=== PATIENT | female | born 1950 | race African-American/Black ===

== ENCOUNTER 2018-02-03 05:26 | Inpatient (IN) ==
[2018-01-28 14:40] LABS: Basophils % 0.5 % (0.0-0.8); Eosinophils # 0.1 10*3/uL (0.0-0.87); Eosinophils % 1.5 % (0.00-10.9); Hematocrit 42.7 VOL% (35.7-47.0); Hemoglobin 13.7 GM/DL (12.0-16.0); Immature Granulocytes % 0.5 %; Immature Granulocytes Absolute 0.03 #; Lymphocytes # 2.5 10*3/uL (1.4-4.0); Lymphocytes % 38.4 % (21.3-54.2); Mean Corpuscular HGB Conc 32.1 GM/DL (32-36); Mean Corpuscular Hemoglobin 26 PG (27-34); Mean Corpuscular Volume 80.3 FL (87-102); Mean Platelet Volume 10.5 FL (9.6-12.0); Monocytes # 0.7 10*3/uL (0.11-0.8); Monocytes % 11.3 % (1.7-12.7); Neutrophils # 3.1 10*3/uL (1.4-7.4); Neutrophils % 47.8 % (38.7-73.9); Platelet Count 255 T/CUMM (130-400); Red Blood Count 5.32 MC/CUMM (3.8-5.5); Red Cell Distribution Width 16.1 % (9.3-17.3); White Blood Count 6.5 T/CUMM (4-12)
[2018-01-28 14:50] LABS: Apearance,Urine CLOUDY (Clear); Bilirubin,Urine Negative (Negative); Blood, Urine Negative (Negative); Glucose,Urine (UA) Negative (Negative); Ketones,Urine 5 mg/dL (Negative); Mucus,Urine Many /LPF (Occasional); Nitrite,Urine Negative (Negative); Protein,Urine Negative; RBC,Urine 1 /HPF (0-4); Renal Epithelial Cells,Urine Occasional /HPF (<1); Squamous Epithelial Cell,Urine Moderate /HPF (0-10); Urine Color Yellow (Yellow); Urine Specific Gravity 1.031 (1.001-1.035); WBC,Urine 1 /HPF (0-6)
[2018-01-28 15:00] LABS: INR 1.1; PT Patient Result 11.8 SECS; Partial Thromboplastin Time 26.6 SECS (0-40)
[2018-01-28 15:05] LABS: Albumin 3.7 G/DL (3.4-5.0); Bilirubin,Total 0.4 MG/DL (0.2-1.0); Calcium 8.8 MG/DL (8.5-10.1); Osmolality,Calculated 279.3 MOS/KG (273-304); Potassium 3.9 MMOL/L (3.5-5.1); Total Protein 6.8 G/DL (6.4-8.3)
[2018-02-03] MEDS ORDERED: VANCOMYCIN INJ 1,000 MG in SODIUM CHLORIDE 0.9% 250 ML IV ONE (06:30)
[2018-02-03] MEDS ORDERED: ceFAZolin 1,000 MG VIAL ONE (06:31)
[2018-02-03] MEDS ORDERED: FAMOTIDINE 20 MG TABLET PO ONE (07:30)
[2018-02-03] MEDS ORDERED: LACTATED RINGERS 1,000 ML IV SCH (07:30)
[2018-02-03] MEDS ORDERED: DIAZEPAM 5 MG TABLET PO ONE (07:40)
[2018-02-03] MEDS ORDERED: VANCOMYCIN 1,000 MG VIAL ONE (08:11)
[2018-02-03] MEDS ORDERED: DIAZEPAM 5 MG TABLET ONE (08:11)
[2018-02-03] MEDS ORDERED: FAMOTIDINE 20 MG TABLET ONE (08:11)
[2018-02-03] MEDS ORDERED: BACITRACIN OINT 0.9 GM PACK TOP ONE (09:03)
[2018-02-03] MEDS ORDERED: TRANEXAMIC ACID 1,000 MG/10 ML VIAL IV ONE (09:03)
[2018-02-03] MEDS ORDERED: MORPHINE 4 MG/1 ML VIAL IV PRN ×2 (10:39)
[2018-02-03] MEDS ORDERED: ZALEPLON 5 MG CAPSULE PO PRN (10:39)
[2018-02-03] MEDS ORDERED: oxyCODONE IR 5 MG TABLET PO PRN ×2 (10:39)
[2018-02-03] MEDS ORDERED: diphenhydrAMINE CAP 25 MG CAPSULE PO PRN (10:39)
[2018-02-03] MEDS ORDERED: ROPIVACAINE 0.5% 30 ML VIAL ONE (12:02)
[2018-02-03] MEDS: HYDROmorphone 2 MG/1 ML VIAL IV PRN ×4 (12:05→12:24)
[2018-02-03] MEDS ORDERED: HYDROmorphone 2 MG/1 ML VIAL ONE (12:05)
[2018-02-03] MEDS ORDERED: ONDANSETRON 4 MG/2 ML VIAL ONE ×2 (12:05→13:00)
[2018-02-03] MEDS ORDERED: ONDANSETRON 4 MG/2 ML VIAL IV PRN (12:31)
[2018-02-03] MEDS ORDERED: PROPOFOL 200 MG/20 ML VIAL IV ONE (12:59)
[2018-02-03] MEDS ORDERED: MIDAZOLAM 2 MG/2 ML VIAL ONE (13:00)
[2018-02-03] MEDS ORDERED: KETOROLAC 30 MG/1 ML VIAL ONE (13:00)
[2018-02-03] MEDS ORDERED: GLYCOPYRROLATE 0.4 MG/2 ML VIAL ONE (13:00)
[2018-02-03] MEDS ORDERED: SEVOFLURANE 1 UNIT/15 MINUTE INH ONE (13:00)
[2018-02-03] MEDS ORDERED: PHENYLEPHRINE 10 MG/1 ML VIAL IV ONE (13:00)
[2018-02-03] MEDS ORDERED: ePHEDrine 50 MG/ML AMP ONE (13:00)
[2018-02-03] MEDS ORDERED: SODIUM CHLORIDE 0.9% 100 ML IV ONE (13:01)
[2018-02-03] MEDS ORDERED: ROCURONIUM 100 MG/10 ML VIAL IV ONE (13:01)
[2018-02-03] MEDS ORDERED: ACETAMINOPHEN 1,000 MG/100 ML VIAL IV ONE (13:01)
[2018-02-03] MEDS ORDERED: NEOSTIGMINE 10 MG/10 ML VIAL ONE (13:01)
[2018-02-03] MEDS: ceFAZolin 2,000 MG in PREMIX 1 EACH IV SCH ×2 (15:40→22:00)
[2018-02-03] MEDS: ACETAMINOPHEN 500 MG TABLET PO SCH ×2 (15:40→20:46)
[2018-02-03] MEDS: KETOROLAC 30 MG/1 ML VIAL IV SCH ×2 (15:42→20:48)
[2018-02-03] MEDS: DOXAZOSIN 4 MG TABLET PO SCH (15:44)
[2018-02-03] MEDS: ONDANSETRON 4 MG/2 ML VIAL IV PRN (16:27)
[2018-02-03] MEDS: LACTATED RINGERS 1,000 ML IV SCH ×2 (19:25)
[2018-02-03] MEDS: DOCUSATE SODIUM 100 MG CAPSULE PO SCH (20:47)
[2018-02-03] MEDS: ATENOLOL 50 MG TABLET PO SCH (20:48)
[2018-02-04] MEDS: KETOROLAC 30 MG/1 ML VIAL IV SCH ×2 (02:06→09:17)
[2018-02-04] MEDS: ACETAMINOPHEN 500 MG TABLET PO SCH ×2 (02:06→09:17)
[2018-02-04] MEDS: LACTATED RINGERS 1,000 ML IV SCH (04:01)
[2018-02-04] MEDS: FONDAPARINUX 2.5 MG/0.5 ML SYRINGE SUBCUT SCH (04:08)
[2018-02-04 05:11] LABS: Basophils % 0.4 % (0.0-0.8); Eosinophils # 0.1 10*3/uL (0.0-0.87); Eosinophils % 0.6 % (0.00-10.9); Hemoglobin 12.4 GM/DL (12.0-16.0); Immature Granulocytes % 0.4 %; Immature Granulocytes Absolute 0.03 #; Lymphocytes # 1.8 10*3/uL (1.4-4.0); Mean Corpuscular HGB Conc 32.6 GM/DL (32-36); Mean Corpuscular Hemoglobin 26 PG (27-34); Mean Corpuscular Volume 79.3 FL (87-102); Mean Platelet Volume 10.7 FL (9.6-12.0); Monocytes # 0.8 10*3/uL (0.11-0.8); Monocytes % 9.5 % (1.7-12.7); Neutrophils # 5.6 10*3/uL (1.4-7.4); Neutrophils % 67.1 % (38.7-73.9); Platelet Count 233 T/CUMM (130-400); Red Blood Count 4.79 MC/CUMM (3.8-5.5); Red Cell Distribution Width 15.6 % (9.3-17.3); White Blood Count 8.4 T/CUMM (4-12)
[2018-02-04 05:21] LABS: Calcium 8.5 MG/DL (8.5-10.1); Osmolality,Calculated 279.3 MOS/KG (273-304)
[2018-02-04] MEDS ORDERED: KETOROLAC 30 MG/1 ML VIAL ONE (09:08)
[2018-02-04] MEDS: DOXAZOSIN 4 MG TABLET PO SCH (09:16)
[2018-02-04] MEDS: VALSARTAN 160 MG TABLET PO SCH (09:16)
[2018-02-04] MEDS: DOCUSATE SODIUM 100 MG CAPSULE PO SCH ×2 (09:17→20:50)
[2018-02-04] MEDS: hydroCHLOROthiazide 12.5 MG CAPSULE PO SCH (09:17)
[2018-02-04] MEDS: ATENOLOL 50 MG TABLET PO SCH (09:17)
[2018-02-04] MEDS: CELECOXIB 200 MG CAPSULE PO SCH (16:34)
[2018-02-05 05:03] LABS: Basophils % 0.4 % (0.0-0.8); Eosinophils # 0.2 10*3/uL (0.0-0.87); Eosinophils % 2.8 % (0.00-10.9); Hematocrit 38.2 VOL% (35.7-47.0); Hemoglobin 12.4 GM/DL (12.0-16.0); Immature Granulocytes % 0.5 %; Immature Granulocytes Absolute 0.04 #; Lymphocytes # 1.9 10*3/uL (1.4-4.0); Lymphocytes % 25.9 % (21.3-54.2); Mean Corpuscular HGB Conc 32.5 GM/DL (32-36); Mean Corpuscular Hemoglobin 26 PG (27-34); Mean Corpuscular Volume 80.1 FL (87-102); Mean Platelet Volume 10.9 FL (9.6-12.0); Monocytes % 12.8 % (1.7-12.7); Neutrophils # 4.3 10*3/uL (1.4-7.4); Neutrophils % 57.6 % (38.7-73.9); Platelet Count 219 T/CUMM (130-400); Red Blood Count 4.77 MC/CUMM (3.8-5.5); Red Cell Distribution Width 15.8 % (9.3-17.3); White Blood Count 7.5 T/CUMM (4-12)
[2018-02-05] MEDS: FONDAPARINUX 2.5 MG/0.5 ML SYRINGE SUBCUT SCH (05:06)
[2018-02-05] MEDS: ONDANSETRON 4 MG/2 ML VIAL IV PRN ×3 (06:43→14:10)
[2018-02-05] MEDS: VALSARTAN 160 MG TABLET PO SCH (08:26)
[2018-02-05] MEDS: DOCUSATE SODIUM 100 MG CAPSULE PO SCH ×2 (08:26→20:23)
[2018-02-05] MEDS: CELECOXIB 200 MG CAPSULE PO SCH (08:26)
[2018-02-05] MEDS: ATENOLOL 50 MG TABLET PO SCH (08:26)
[2018-02-05] MEDS: hydroCHLOROthiazide 12.5 MG CAPSULE PO SCH (08:26)
[2018-02-05] MEDS: DOXAZOSIN 4 MG TABLET PO SCH (08:26)
[2018-02-05] MEDS ORDERED: TUBERCULIN SKIN TEST 0.1 ML SYRINGE INTRADERM ONE (15:41)
[2018-02-05] MEDS: MAGNESIUM HYDROXIDE SUSP 30 ML UDCUP PO PRN (20:23)
[2018-02-06 04:31] LABS: Basophils % 0.4 % (0.0-0.8); Eosinophils # 0.2 10*3/uL (0.0-0.87); Eosinophils % 1.9 % (0.00-10.9); Hematocrit 35.6 VOL% (35.7-47.0); Hemoglobin 11.5 GM/DL (12.0-16.0); Immature Granulocytes % 0.3 %; Immature Granulocytes Absolute 0.03 #; Lymphocytes # 2.7 10*3/uL (1.4-4.0); Lymphocytes % 29.9 % (21.3-54.2); Mean Corpuscular HGB Conc 32.3 GM/DL (32-36); Mean Corpuscular Hemoglobin 26 PG (27-34); Mean Corpuscular Volume 79.6 FL (87-102); Mean Platelet Volume 10.5 FL (9.6-12.0); Monocytes # 1.1 10*3/uL (0.11-0.8); Monocytes % 12.3 % (1.7-12.7); Neutrophils % 55.2 % (38.7-73.9); Platelet Count 217 T/CUMM (130-400); Red Blood Count 4.47 MC/CUMM (3.8-5.5); Red Cell Distribution Width 15.8 % (9.3-17.3)
[2018-02-06] MEDS: FONDAPARINUX 2.5 MG/0.5 ML SYRINGE SUBCUT SCH (05:21)
[2018-02-06] MEDS: MAGNESIUM HYDROXIDE SUSP 30 ML UDCUP PO PRN (07:10)
[2018-02-06] MEDS ORDERED: BISACODYL 10 MG SUPP RECTAL PRN (07:58)
[2018-02-06] MEDS: DOXAZOSIN 4 MG TABLET PO SCH (09:23)
[2018-02-06] MEDS: CELECOXIB 200 MG CAPSULE PO SCH (09:23)
[2018-02-06] MEDS: DOCUSATE SODIUM 100 MG CAPSULE PO SCH ×2 (09:24→20:34)
[2018-02-06] MEDS: ATENOLOL 50 MG TABLET PO SCH (09:24)
[2018-02-06] MEDS: hydroCHLOROthiazide 12.5 MG CAPSULE PO SCH (09:24)
[2018-02-06] MEDS: VALSARTAN 160 MG TABLET PO SCH (09:24)
[2018-02-07] MEDS: FONDAPARINUX 2.5 MG/0.5 ML SYRINGE SUBCUT SCH (05:34)
[2018-02-07] MEDS: VALSARTAN 160 MG TABLET PO SCH (09:17)
[2018-02-07] MEDS: CELECOXIB 200 MG CAPSULE PO SCH (09:17)
[2018-02-07] MEDS: DOCUSATE SODIUM 100 MG CAPSULE PO SCH ×2 (09:17→20:48)
[2018-02-07] MEDS: DOXAZOSIN 4 MG TABLET PO SCH (09:17)
[2018-02-07] MEDS: hydroCHLOROthiazide 12.5 MG CAPSULE PO SCH (09:17)
[2018-02-07] MEDS: ATENOLOL 50 MG TABLET PO SCH (09:18)
[2018-02-08] MEDS: FONDAPARINUX 2.5 MG/0.5 ML SYRINGE SUBCUT SCH (05:42)
[2018-02-08] MEDS: CELECOXIB 200 MG CAPSULE PO SCH (08:30)
[2018-02-08] MEDS: hydroCHLOROthiazide 12.5 MG CAPSULE PO SCH (08:30)
[2018-02-08] MEDS: DOCUSATE SODIUM 100 MG CAPSULE PO SCH ×3 (08:30→20:25)
[2018-02-08] MEDS: ATENOLOL 50 MG TABLET PO SCH (08:30)
[2018-02-08] MEDS: DOXAZOSIN 4 MG TABLET PO SCH (08:30)
[2018-02-08] MEDS: VALSARTAN 160 MG TABLET PO SCH (08:30)
[2018-02-08] MEDS: ONDANSETRON 4 MG/2 ML VIAL IV PRN ×3 (09:18→20:25)
[2018-02-09] MEDS: FONDAPARINUX 2.5 MG/0.5 ML SYRINGE SUBCUT SCH (06:56)
[2018-02-09 07:34] VITALS: BP 157/93
[2018-02-09] MEDS: CELECOXIB 200 MG CAPSULE PO SCH (09:27)
[2018-02-09] MEDS: VALSARTAN 160 MG TABLET PO SCH (09:27)
[2018-02-09] MEDS: DOCUSATE SODIUM 100 MG CAPSULE PO SCH (09:27)
[2018-02-09] MEDS: hydroCHLOROthiazide 12.5 MG CAPSULE PO SCH (09:27)
[2018-02-09] MEDS: ATENOLOL 50 MG TABLET PO SCH (09:27)
[2018-02-09] MEDS: DOXAZOSIN 4 MG TABLET PO SCH (09:27)
== END 2018-02-09 10:39 | disposition swing bed (61) | DRG 470 ==
LOC: N.SDSINP 05:26 → N.OR 05:26 → N.3E 10:55
PROVIDERS: ADMIT Orthopaedic Surgery; ATTEND Orthopaedic Surgery